=== PATIENT | female | born 1945 | race Caucasian/White ===

== ENCOUNTER → 2021-01-06 | Outpatient (CLI) | payer MEDICARE, OTHER ==
[2014-07-05 11:35] VITALS: BP 144/77
[~2021-01-06] MED LIST: ALLO100T PO; ALLO300T PO; ASPI-482 PO; ASPI-886 PO; CELE200C PO; CHLO50TA PO; FERR325T14 PO; FLAX100017 PO; LOSA100T14 PO; MULT-445 PO; NEOM14.27 TP; Oxycodone Hcl/Acetaminophen PO; POTA15TA PO; PYRI100T9 PO; TRAM50TA PO; WARF5TAB2 PO; Warfarin Sodium MC
--- NOTE | 2021-01-06 16:03 | KCIC ---
EXAM: Lumbar spine, 3 views. HISTORY: Pain. COMPARISON: None. FINDINGS: 3 views of the lumbar spine are obtained. There is grade 1 anterolisthesis of L4 and L5 and L5 on S1, measuring 5 mm. There is grade 1 anterolisthesis of L3 on L4, measuring 4 mm. There is 3 m m retrolisthesis of L1 on L2 and L2 on L3. This minimally increases at L3-L4 during flexion. There is multilevel endplate remodeling and spurring. There is facet arthropathy predominantly at the mid low er lumbar levels. IMPRESSION: 1. Multilevel grade 1 anterolisthesis and slight retrolisthesis, described above. This minimally incr eases at L3-L4 during flexion. 2. Multilevel degenerative change, predominantly at the mid lower lumbar levels. Electronically signed by: Mariah Vergara MD (01/06/2021 4:01 PM) [id number]
== END ==
LOC: KCIC 15:18
PROVIDERS: ATTEND Neurological Surgery
DX: M47.816 Spondylosis without myelopathy or radiculopathy, lumbar region (principal); M43.16 Spondylolisthesis, lumbar region
CPT/HCPCS: 72100

== ENCOUNTER → 2021-01-15 | Outpatient (CLI) | payer MEDICARE, OTHER ==
[2014-07-05 11:35] VITALS: BP 144/77
[~2021-01-15] MED LIST changes: +ACET325T9 PO; +ASCO500C PO; +BIOT25006 PO; +CHOL10004 PO; +CHRO400T3 PO; +CINN500C2 PO; +CYAN25002 SL; +EVEN500C4 PO; +FLAX10003 PO; +GARL10002 PO; +GLUC-11 PO; +IBUP200T58 PO; +IOHEXOL 180 MG/ML 10 ML VIAL. ONE; +MAGN500C10 PO; +METF10007 PO; +MULT-697 PO; +NAC/1CAP PO; +TURM538C PO; +UBID200C7 PO; +VITA-47 PO; +methylPREDNISolone ACETATE 40 MG/ML VIAL. ONE; +methylPREDNISolone ACETATE 80 MG/ML VIAL. ONE
--- NOTE | 2021-01-15 15:49 | PDOC1 ---
INITIAL PAIN CONSULT DATE OF SERVICE: DOS: DATE: 01/15/21 TIME: 15:39 CHIEF COMPLAINT: Chief Complaint: Low back and left lower extremity pain HISTORY OF PRESENT ILLNESS: 75-year-old female presents with history of pain low back left lower extremity for about 1 month not result of any specific injury or accident she is aware but the pain is been getting worse gradually over the past month in the low back rat ing the posterior gluteus posterior lateral thigh lateral anterior thigh medial thigh lateral thigh and posterior calf and posterior medial calf on the left side only. Patient reports is worse with walking standing changing positions better with sitting or laying down but is been awakened from sleep at least 2-3 times a night. Patient reports is not effective bowel bladder control does affect ability to walk she sometimes uses a walker when she is at home does not have that with her today. Patient has had chiropractic treatment which was helpful but only temporarily has had some massage treatment also which is also helpful patient is taking Advil also Tylenol and tramadol all of which help to some extent but only 20% at the most. Patient reports no loss of motor function but significant fatigability left lower extremity patient describes the pain is constant and sharp and aching in the back radiating the left lower extremity as described. Patient describes pain is constant sharp throbbing shooting stabbing with numbness and radiation into the left leg aching and burning in the back as well. Patient rates her disability rating 0-10 10 being the worst is a 9 with family home responsibilities recreation social activity and occupational activities as well as light support activities and 7 with regard to self-care activities. Patient did have an MRI scan of the lumbar spine showing multilevel degenerative changes throughout the lower thoracic and lumbar spine L3-4 broad- based posterior central disc protrusion with moderate to severe right and mild to moderate left foraminal stenosis. L4-5 shows disc bulge and endplate remodeling L5-S1 shows lateral foraminal to extraforaminal disc protrusion superimposed on a disc bulge with abutment of the exiting L5 nerve root without significant foraminal stenosis PAST MEDICAL HISTORY: PMH: Diabetes type 2, hypertension arthritis PREVIOUS SURGERIES: Past Surgical Hx: Bilateral knee replacements, , tonsillectomy adenoidectomy CURRENT MEDICATIONS: Current Meds: Active Scripts Medications Dose Route/Sig Max Daily Dose Days Date Category Dose Instructions Tylenol (Acetaminophen) 325 Mg Tablet 1-2 Tab PO QID 01/15/21 Reported Advil (Ibuprofen) 200 Mg Tablet 400 Mg PO PRN Q6HRS PRN 01/15/21 Reported Turmeric (Turmeric Root Extract) 538 Mg Capsule 1,000 Mg PO DAILY 01/15/21 Reported Magnesium (Magnesium Oxide) 500 Mg Capsule 1 Cap PO BID 30 01/15/21 Reported Liver Protect Capsule (Nac/Ala/Milk Thistle/Selenomet) 1 Each Capsule 1 Each PO DAILY 01/15/21 Reported Cidaflex Tablet (Glucosamine Hcl/Chondr Parkinson A Na) 1 Each Tablet 1 Tab PO BID 30 01/15/21 Reported Garlic 1,000 Mg Capsule 1,000 Mg PO DAILY 01/15/21 Reported Flax Oil (Flaxseed Oil) 1,000 Mg Capsule 1 Cap PO DAILY 30 01/15/21 Reported Evening Ladd Oil 500 Mg Capsule 1,000 Mg PO DAILY 01/15/21 Reported Vitamin E (Vitamin E (Dl,Tocopheryl Acet)) 400 Unit Capsule 400 Unit PO DAILY 01/15/21 Reported Vitamin D3 (Vitamin D) 25 Mcg Tablet 25 Mcg PO TID 01/15/21 Reported 1,000 UNITS = 25 MCG Co Q-10 (Ubidecarenone) 200 Mg Capsule 1 Cap PO DAILY 30 01/15/21 Reported Cinnamon (Cinnamon Bark) 500 Mg Capsule 1,000 Mg PO BID 01/15/21 Reported Chromium Picolinate 400 Mcg Tablet 800 Mcg PO DAILY 01/15/21 Reported Centrum Adults Tablet (Multivitamin/Iron/Folic Acid) 1 Each Tablet 1 Each PO DAILY 01/15/21 Reported Vitamin C (Ascorbic Acid) 500 Mg Capsule.er 2 Cap PO DAILY 30 01/15/21 Reported Biotin 2,500 Mcg Capsule 2 Cap PO DAILY 30 01/15/21 Reported B-12 (Cyanocobalamin (Vitamin B-12)) 2,500 Mcg Tab.subl 2,500 Mcg SL DAILY 01/15/21 Reported Metformin Hcl 1,000 Mg Tablet 1,000 Mg PO BIDWMEALS 01/15/21 Reported Aspir 81 (Aspirin) 81 Mg Tablet.dr 1 Tab PO HS 06/05/14 Reported Allopurinol 100 Mg Tablet 400 Mg PO HS 06/05/14 Reported Chlorthalidone 50 Mg Tablet 50 Mg PO DAILY 11/09/13 Reported Losartan Potassium 100 Mg Tablet 100 Mg PO HS 11/09/13 Reported ALLERGIES; Allergies: Coded Allergies: codeine (Verified Allergy, Intermediate, Nausea and Vomiting, 07/02/14) FAMILY HISTORY: Family Hx: Cancers and hypertension SOCIAL HISTORY: Social Hx: Patient is nondrug alcohol does not smoke not use any illegal illicit or recreational drugs is lives with her spouse lives locally in [facility] and is currently retired. REVIEW OF SYSTEMS: ROS: Positive for those items mentioned in history of present illness, all systems are reviewed, otherwise negative ,and are complete full and well-documented on patient's chart. PHYSICAL EXAM: VS: Blood pressure is 161/89 pulse 87 respirations 18 temperature 97.9 F height is 5 feet 5 inches weight is 232 pounds PE: PHYSICAL EXAMINATION: GENERAL: The patient is awake, alert, oriented, appropriate, very pleasant demeanor HEENT: Shows normocephalic, atraumatic. Extraocular movements are intact and symmetrical. Oral cavity: Mucous membranes moist and pink. Dentition is intact. NECK: Shows anterior throat supple without palpable lymphadenopathy noted. Swallow reflex symmetrical. CHEST: Shows normal on inspection. Breath sounds are clear bilaterally, no rales rhonchi wheezes auscultated. HEART: Shows S1, S2 clear. No murmurs auscultated. ABDOMEN: Soft, nontender, nondistended, obese. No palpable organomegaly is noted. No rebound or guarding demonstrated. BACK: Shows spine grossly in the midline. Normal-appearing cervical lordotic curvature. There is increased thoracic kyphosis, some flattening of the lumbar lordotic curvature. Lumbar paraspinous muscles show symmetrical on inspection, on palpation shows some moderate tenderness diffusely throughout the upper, m iddle and lower distribution of the paraspinous muscles bilaterally and also into the lower thoracic paraspinous musculature, firm and tender, but without specific trigger points, without radiation of pain. The patient has good rotational motion of the lumbar spine, both laterally as well as extension and flexion without significant difficulty. No tenderness over the spinous proc esses, sacrum or sacroiliac regions. EXTREMITIES: Lower extremities show deep tendon reflexes 1 in the patellar and tendo calcaneus tendons. Motor exam is 5 on a scale of 5 with right dorsiflexion, extension, quadriceps and hamstring flexion and 5/5 on the left. Peripheral pulses are 1 posterior tibial. No peripheral edema is noted bilaterally. Lower extremities are warm and dry to touch, equal in color and appearance. Straight leg raise noted to be positive on the left at approximate 40 degrees decreased with knee flexion, right side is negative. Gaenslen's and Jonnathan's maneuvers are negative bilaterally as well. The patient is able to stand, stand on her toes without significant difficulty or loss of balance walks with a normal-appearing gait for short distance in the office today not use any assistive device such as canes or walkers to ambulate. SKIN: Shows warm and dry, good turgor. No edema. No sores, rashes or bruising throughout. IMPRESSION: Impression: 75-year-old female with 1 month history increasing pain low back left lower extremity radicular fashion. MRI scan lumbar spine, as noted Arthritis Hypertension Type 2 diabetes Plan: Options were discussed with the patient including conservative medical management physical therapies and interventional techniques. Patient would like to pursue interventional techniques, we discussed a lumbar epidural steroid injection using description as well as anatomical models described procedure. Risks were discussed including but not limited to: Bleeding, infection, possibility of epidural hematoma and subsequent neurological compromise, dural puncture, headaches, spinal cord and/or nerve damage, side effects of steroid medication, and poor results regarding pain control. Patient understands and wished to proceed. Patient will return to the clinic in approximate 2 weeks for follow-up, was counseled as return appointment, activity level, and side effects to be aware of. Procedure is lumbar epidural steroid injection under local anesthetic using sterile prep and drape at the L4-5 level using C-arm fluoroscopic guidance in both AP and lateral views medications injected is 120 mg Depo-Medrol +10mL preservative-free normal saline and 2 mL contrast- condition at discharge is stable patient tolerated procedure well had no complications. KIET MARES MD January 15, 2021 15:49
== END | disposition home or self-care (01) ==
LOC: PNCL 13:46
PROVIDERS: ATTEND Anesthesiology
DX: M54.5 Low back pain (principal); M79.605 Pain in left leg; I10 Essential (primary) hypertension; E11.9 Type 2 diabetes mellitus without complications; M19.90 Unspecified osteoarthritis, unspecified site; E66.9 Obesity, unspecified; M10.9 Gout, unspecified; Z79.82 Long term (current) use of aspirin; Z79.899 Other long term (current) drug therapy; Z79.84 Long term (current) use of oral hypoglycemic drugs; Z98.890 Other specified postprocedural states; Z88.5 Allergy status to narcotic agent
CPT/HCPCS: 62323; J1030; J1040; Q9965

== ENCOUNTER → 2021-01-29 | Outpatient (CLI) | payer MEDICARE, OTHER ==
[2014-07-05 11:35] VITALS: BP 144/77
[~2021-01-29] MED LIST changes: -IOHEXOL 180 MG/ML 10 ML VIAL. ONE; -methylPREDNISolone ACETATE 40 MG/ML VIAL. ONE; -methylPREDNISolone ACETATE 80 MG/ML VIAL. ONE
--- NOTE | 2021-01-29 12:36 | PDOC ---
Progress Note - Pain Clinic Date of Service: DOS: DATE: 01/29/21 TIME: 12:33 Diagnosis: Dx: Lumbar radiculopathy with lumbar degenerative disc disease and lumbar spinal stenosis History or Present Illness: HPI: 75-year-old female returns for follow-up status post lumbar epidural steroid x1. Patient reports 100% improvement in the pain in her low back and left lower extremity. Patient reports she is been increasing her activity to greater ease and comfort walking greater distances doing household activities travel with gr eater ease sleeping much better at night patient reports her pain is a 1 at its worst over the past few weeks 0 its least 0 on average patient reports is a 0 today patient reports she has some very small discomfort in the left side of the low back otherwise doing very well patient reports no new motor or sensory deficits no new bowel or bladder incontinence and she is very pleased with progress thus far. Physical Exam: VS: Blood pressure is 144/82 pulse 85 respirations 18 temperature Fahrenheit height is 5 feet 5 inches weight is 233 pounds PE: PHYSICAL EXAMINATION: GENERAL: The patient is awake, alert, oriented, appropriate, very pleasant in demeanor HEENT: Shows normocephalic, atraumatic. Extraocular movements are intact and symmetrical. NECK: Shows anterior throat supple without palpable lymphadenopathy noted. Swallow reflex symmetrical. BACK: Shows spine grossly in the midline. Normal-appearing cervical lordotic curvature. There is slightly increased thoracic kyphosis, some minor flattening of the lumbar lordotic curvature. Lumbar paraspinous muscles show symmetrical on inspection, on palpation shows some moderate tenderness diffusely throughout the upper, middle and lower distribution of the paraspinous muscles, but without specific trigger points, without radiation of pain. The patient has good rotational motion of the lumbar spine, both laterally as well as extension and flexion without significant difficulty. No tenderness over the spinous processes, sacrum or sacroiliac regions. EXTREMITIES: Lower extremities show deep tendon reflexes 1+ in the patellar and tendo calcaneus tendons. Motor exam is 5 on a scale of 5 with right dorsiflexion, extension, quadriceps and hamstring flexion and 5/5 on the left. Peripheral pulses are 1+ posterior tibial. No peripheral edema is noted bilaterally. Lower extremities are warm and dry. SKIN: Shows warm and dry, good turgor. No edema. No sores, rashes or bruising throughout. Procedure: Procedure: Options were discussed with the patient. Patient's old chart was reviewed as her current medication regimen updated current review of systems updated today as well. We will hold on any further injections at this time as patient is doing much better. Patient was encouraged to increase her activity gradually and as tolerated and if the pain begins to return she will follow up on as- needed basis at that time. Medication Injected: Med Injected: None Condition at Discharge: Condition at Discharge: Condition at discharge is stable. KIET MARES MD Jan 29, 2021 12:36
== END | disposition home or self-care (01) ==
LOC: PNCL 11:40
PROVIDERS: ATTEND Anesthesiology
DX: M51.16 Intervertebral disc disorders with radiculopathy, lumbar region (principal); M48.061 Spinal stenosis, lumbar region without neurogenic claudication; I10 Essential (primary) hypertension; E66.9 Obesity, unspecified; M10.9 Gout, unspecified; M19.90 Unspecified osteoarthritis, unspecified site; Z79.899 Other long term (current) drug therapy; Z98.890 Other specified postprocedural states; Z79.82 Long term (current) use of aspirin; Z79.84 Long term (current) use of oral hypoglycemic drugs; Z88.5 Allergy status to narcotic agent
CPT/HCPCS: 99212; G0463

== ENCOUNTER → 2021-02-24 | Outpatient (CLI) | payer MEDICARE, OTHER ==
[2014-07-05 11:35] VITALS: BP 144/77
[~2021-02-24] MED LIST changes: +IOHEXOL 180 MG/ML 10 ML VIAL. ONE; +methylPREDNISolone ACETATE 40 MG/ML VIAL. ONE; +methylPREDNISolone ACETATE 80 MG/ML VIAL. ONE
--- NOTE | 2021-02-24 14:17 | PDOC ---
Progress Note - Pain Clinic Date of Service: DOS: DATE: 02/24/21 TIME: 14:15 Diagnosis: Dx: Lumbar radiculopathy with lumbar degenerative disease and lumbar spinal stenosis History or Present Illness: HPI: 75-year-old female returns to follow-up status post lumbar epidural steroid injection x1. Patient had excellent results after first injection which was January 15, 2021 500% improvement the pain returned now over the past several days and by the last 4 days has been back to baseline in the left low back and left lower extremity patient reports he does not radiate in her entire leg but is in the posterior gluteus lateral thigh anterior thigh medial thigh patient reports is worse with walking standing changing positions become difficult to sleep again over the past few days and describes the pain as burning aching and sharp in the back shooting in the leg constant and unbearable patient reports a 10 on scale 10 is worst 10 on average and a 9 his least over the past few days it is a 10 today patient reports no new motor or sensory deficit she is taking Advil does decrease the pain but only by about 10%. Patient reports no new bowel or bladder incontinence or other complaints. Physical Exam: VS: Blood pressure is 137/111 pulse 98 respirations 18 temperature is 97.5 F height is 5 feet 5 inches weight is 228 pounds PE: PHYSICAL EXAMINATION: GENERAL: The patient is awake, alert, oriented, appropriate, very pleasant in demeanor HEENT: Shows normocephalic, atraumatic. Extraocular movements are intact and symmetrical. Oral cavity: Mucous membranes moist and pink. NECK: Shows anterior throat supple without palpable lymphadenopathy noted. Swallow reflex symmetrical. CHEST: Shows normal on inspection. Breath sounds are clear bilaterally. HEART: Shows S1, S2 clear. No murmurs auscultated. ABDOMEN: Soft, nontender, nondistended, obese. No palpable organomegaly is noted. No rebound or guarding demonstrated. BACK: Shows spine grossly in the midline. Normal-appearing cervical lordotic curvature. There is slightly increased thoracic kyphosis, some minor flattening of the lumbar lordotic curvature. Lumbar paraspinous muscles show symmetrical on inspection, on palpation shows some moderate tenderness diffusely throughout the upper, middle and lower distribution of the paraspinous muscles, but without specific trigger points, without radiation of pain. The patient has good rotational motion of the lumbar spine, both laterally as well as extension and flexion without significant difficulty. EXTREMITIES: Lower extremities show deep tendon reflexes 1+ in the patellar and tendo calcaneus tendons. Motor exam is 5 on a scale of 5 with right dorsiflexion, extension, quadriceps and hamstring flexion and 5/5 on the left. Peripheral pulses are 1+ posterior tibial. No peripheral edema is noted bilaterally. Lower extremities are warm and dry to touch, equal in color and appearance. SKIN: Shows warm and dry, good turgor. No edema. No sores, rashes or bruising throughout. Procedure: Procedure: Options discussed with the patient. Patient chart was reviewed as her current medication regimen updated current review of systems updated today as well. We will proceed with a second in a series lumbar epidural steroid injection today. Risks were discussed including but not limited to: Bleeding, infection, possibility of epidural hematoma and subsequent neurological compromise, dural puncture, headaches, spinal cord and/or nerve damage, side effects of steroid medication, and poor results regarding pain control. Patient understands and wished to proceed. Patient will return to clinic in approximate 2 weeks for follow-up, was counseled as return appointment active level and side effects to be aware of. Medication Injected: Med Injected: Procedure is lumbar epidural steroid injection under local anesthetic using sterile prep and drape at the L4-5 level using C-arm fluoroscopic guidance in both AP and lateral views medications injected is 120 mg Depo-Medrol +10mL preservative-free normal saline and 2 mL contrast- condition at discharge is stable patient tolerated procedure well had no complications. Condition at Discharge: Condition at Discharge: Condition at discharge stable, patient already procedure well and no complications. KIET MARES MD Feb 24, 2021 14:17
--- NOTE | 2021-02-24 14:18 | PDOC4 ---
Procedure Note: Procedure Note: Patient was consented for lumbar epidural steroid injection. Risks were discussed including but not limited to: Bleeding, infection, possibility of epidural hematoma and subsequent neurological compromise, dural puncture, headaches, spinal cord and/or nerve damage, side effects of steroid medication, and poor results regarding pain control. Patient understands and wished to proceed. Procedure is lumbar epidural steroid injection under local anesthetic using sterile prep and drape at the L4-5 level using C-arm fluoroscopic guidance in both AP and lateral views medications injected is 120 mg Depo-Medrol +10mL preservative-free normal saline and 2 mL contrast- condition at discharge is stable patient tolerated procedure well had no complications. KIET MARES MD Feb 24, 2021 14:18
== END | disposition home or self-care (01) ==
LOC: PNCL 13:44
PROVIDERS: ATTEND Anesthesiology
DX: M51.16 Intervertebral disc disorders with radiculopathy, lumbar region (principal); M48.061 Spinal stenosis, lumbar region without neurogenic claudication; I10 Essential (primary) hypertension; E66.9 Obesity, unspecified; M19.90 Unspecified osteoarthritis, unspecified site; M10.9 Gout, unspecified; Z79.82 Long term (current) use of aspirin; Z79.84 Long term (current) use of oral hypoglycemic drugs; Z79.899 Other long term (current) drug therapy; Z98.890 Other specified postprocedural states; Z88.5 Allergy status to narcotic agent; Z82.49 Family history of ischemic heart disease and other diseases of the circulatory system
CPT/HCPCS: 62323; J1030; J1040; Q9965

== ENCOUNTER → 2021-03-10 | Outpatient (CLI) | payer MEDICARE, OTHER ==
[2014-07-05 11:35] VITALS: BP 144/77
[~2021-03-10] MED LIST changes: -IOHEXOL 180 MG/ML 10 ML VIAL. ONE; -methylPREDNISolone ACETATE 40 MG/ML VIAL. ONE; -methylPREDNISolone ACETATE 80 MG/ML VIAL. ONE
--- NOTE | 2021-03-10 11:18 | PDOC ---
Progress Note - Pain Clinic Date of Service: DOS: DATE: 03/10/21 TIME: 11:15 Diagnosis: Dx: Lumbar radiculopathy lumbar degenerative disease lumbar spinal stenosis History or Present Illness: HPI: 75-year-old female returns follow-[facility] Patient reports about 100% provement after the first half of the second shot only about 20% improvement patient reports pain in the low back and left lower extremity with new finding of numbness in the left leg 2-3 times a day does not matter if she is walking standing sitting or laying down she gets numbness about 2-3 times a day where she still able to move her leg but feels patient reports it feels like it is on fire as well on the left leg but only intermittently patient reports the pain is sharp burning which is a new sensation and constant at times patient reports is near unbearable with walking and standing patient reports she has had no real relief after the last injection her pain is a 9-10 on scale 10 at all times average worst and least and is currently 9-10 patient reports it wakes her from sleep about every 3 hours or so as quite disappointed after the first injection she did so well and the pain now significant and with new findings of burning numbness in the left lower extremity. Patient reports no overt weakness at this time. No new bowel or bladder incontinence or other complaints. Physical Exam: VS: Blood pressure is 161/76 pulse 80 respirations 20 temperature is 98.2 F, weight is 123 pounds PE: PHYSICAL EXAMINATION: GENERAL: The patient is awake, alert, oriented, appropriate, very pleasant in d emeanor HEENT: Shows normocephalic, atraumatic. Extraocular movements are intact and symmetrical. NECK: Shows anterior throat supple without palpable lymphadenopathy noted. Swallow reflex symmetrical. CHEST: Shows normal on inspection. Breath sounds are clear bilaterally, no rales or rhonchi. HEART: Shows S1, S2 clear. No murmurs auscultated. ABDOMEN: Soft, nontender, nondistended, obese. BACK: Shows spine grossly in the midline. Normal-appearing cervical lordotic curvature. There is slightly increased thoracic kyphosis, some minor flattening of the lumbar lordotic curvature. Lumbar paraspinous muscles show symmetrical on inspection, on palpation shows some moderate tenderness diffusely throughout the upper, middle and lower distribution of the paraspinous muscles, but without specific trigger points, without radiation of pain. The patient has good rotational motion of the lumbar spine, both laterally as well as extension and flexion without significant difficulty. No tenderness over the spinous pro cesses, sacrum or sacroiliac regions. EXTREMITIES: Lower extremities show deep tendon reflexes 1+ in the patellar and tendo calcaneus tendons. Motor exam is 5 on a scale of 5 with right dorsiflexion, extension, quadriceps and hamstring flexion and 5/5 on the left. Peripheral pulses are 1+ posterior tibial. No peripheral edema is noted bilaterally. Lower extremities are warm and dry to touch, equal in color and appearance. SKIN: Shows warm and dry, good turgor. No edema. No sores, rashes or bruising throughout. Procedure: Procedure: Options were discussed with patient. Patient chart was reviewed as her current medication regimen updated current review of systems updated today as well. We will hold on further injections at this time and will try Medrol Dosepak patient was given instructions well side effects aware with the medication will follow up after the Dosepak is completed depending on its results may proceed with third lumbar epidural steroid injection in the future. She understands and agrees. Medication Injected: Med Injected: None Condition at Discharge: Condition at Discharge: Condition at discharge stable. KIET MARES MD Mar 10, 2021 11:18
== END | disposition home or self-care (01) ==
LOC: PNCL 10:34
PROVIDERS: ATTEND Anesthesiology
DX: M51.16 Intervertebral disc disorders with radiculopathy, lumbar region (principal); M48.061 Spinal stenosis, lumbar region without neurogenic claudication; I10 Essential (primary) hypertension; E66.9 Obesity, unspecified; M19.90 Unspecified osteoarthritis, unspecified site; M10.9 Gout, unspecified; Z79.82 Long term (current) use of aspirin; Z79.84 Long term (current) use of oral hypoglycemic drugs; Z79.899 Other long term (current) drug therapy; Z98.890 Other specified postprocedural states; Z88.5 Allergy status to narcotic agent
CPT/HCPCS: 99212; G0463